=== PATIENT | female | born 1980 | race Caucasian/White ===

== ENCOUNTER 2018-06-25 13:22 | Emergency (ER) | payer OTHER, SELFPAY ==
[2018-06-25 13:23] VITALS: BP 121/75; BP 160/83; PULSE 72; PULSE 76; RESP 17; TEMP 36.5; O2SAT 100; O2SAT 99; BMI 23.3
--- NOTE | 2018-06-25 13:27 | HMH.EDGENADL ---
ED Disposition Clinical Impression: Atypical chest pain Disposition: Hospice - Medical Facility Condition on Discharge: Good Instructions: DI for Atypical Chest Pain Additional Instructions: Additional instructions for CHEST PAIN: See your physician as soon as possible for further evaluation. Return immediately if worsening chest pain, vomiting, shortness of breath, fever, coughing of blood. Referrals: Provider,Referral, [Referring] - - Critical Care Critical Care Time: No Attestation: On , the high probability of a clinically significant, sudden or life threatening deterioration of the following system(s) required my full and direct attention, intervention and personal management. The time I documented below is in addition to time spent performing reported procedures but includes the following listed in this critical care notation. Medical Decision Making - Norman Inquiry Pt receiving controlled substance: No Vital Signs: 06/25/18 13:23 06/25/18 13:53 Temperature 97.7 F Temperature Source Oral Pulse Rate [Right Brachial] 72 70 Respiratory Rate 17 Blood Pressure [Right Arm] 121/75 121/73 Blood Pressure Mean [Right Arm] 90 89 Blood Pressure Source [Right Arm] Automatic Cuff Blood Pressure Position [Right Arm] Sitting 02 Sat by Pulse Oximetry 99 99 Oxygen Delivery Method Room Air - Lab Data Lab Results 06/25/18 13:30: WBC 4.7 L, RBC 4.31, Hgb 13.8, Hct 40.3, MCV 93.4, MCH 32.1 H, MCHC 34.4, RDW 11.9, Plt Count 204, MPV 8.0, Neut % (Auto) 47.6, Lymph % (Auto) 44.8, [place] % (Auto) 5.4, Eos % (Auto) 1.6, Baso % (Auto) 0.5, Neut # (Auto) 2.2, Lymph # (Auto) 2.1, [place] # (Auto) 0.3, Eos # (Auto) 0.1, Baso # (Auto) 0.0 06/25/18 13:30: Sodium 137, Potassium 3.6, Chloride 102, Carbon Dioxide 26, Anion Gap 12.6, BUN 13, Creatinine 0.63, Estimated Creat Clear 124, Estimated GFR 105, Est GFR ( Amer) 127, Glucose 87, Calcium 8.9, Troponin I < 0.02 06/25/18 13:30: D-Dimer < 100 Result diagrams: 06/25/18 13:30 06/25/18 13:30 Orders (Tests/Meds): ORDERS Category Date Time Status XR chest 2V Stat Exams 06/25/18 13:29 Taken - Radiology Data #1 Image(s): Chest Preliminary Findings: Normal/NAD - ECG Data Tracing #1 EKG interpreted by Fernando Vera MD: Rhythm: sinus Rate: 77 [place]: normal Ectopy: none Conduction: normal ST Segment Changes: none T Wave Changes: none Q Waves: none No evidence of acute ischemia or injury Medical Decision Narrative: 2:22 PM: Discussed results with patient. I recommended staying for a second troponin level 3 hours after the first. She declines. She would like to be discharged. She says she thinks she is fine. General Adult HPI - General Chief complaint: Chest Pain Stated complaint: chest pain Time Seen by Provider: 06/25/18 13:30 - History of Present Illness HPI narrative: Complains of chest discomfort. States that she was seen here in the urgent treatment center on 06/18/2018 for right arm problems. She says a blood vessel burst in her right middle finger and the veins on top of her right hand more dark and protruding. She was started on ibuprofen. She followed up with her primary care doctor. She says that she was having no chest pain associated with that. Her right arm has gotten better. Today at work she developed chest discomfort. Initially a sharp stabbing pain in her sternal area associated with nausea and numbness of both hands. Also developed a burning sensation in her anterior chest on the way here. No shortness of breath. No leg pain or swelling. No recent travel, surgery, or hospitalizations. She has no known heart disease and is not on any other medications. She is a smoker. - Related Data Home Medications Medication Instructions Recorded Confirmed No Known Home Medications 06/25/18 06/25/18 Allergies Allergy/AdvReac Type Severity Reaction Status Date / Time Penicillins Allergy Verif
--- NOTE | 2018-06-25 13:29 | XR_ITS ---
XR chest 2V HISTORY: ITS.REASON: chest pain, right arm radiation ORDERING PHYSICIAN: Fernando Vera MD PATIENT AGE: 37 years COMPARISON: None FINDINGS: The cardiomediastinal silhouette and pulmonary vascularity are within normal limits. The lungs are clear without infiltrates, suspicious nodules, or pleural effusions. No acute bony abnormalities. IMPRESSION: Negative chest, no acute finding
[2018-06-25 13:42] LABS: Basophils % 0.5 % (0.1-2.0); Eosinophils # 0.1 K/mm3 (0.0-0.4); Eosinophils % 1.6 % (0.1-12.0); Hematocrit 40.3 % (37.0-47.0); Hemoglobin 13.8 g/dL (12.2-16.2); Lymphocytes # 2.1 K/mm3 (0.7-4.5); Lymphocytes % 44.8 % (10-50); Mean Corpuscular HGB Conc 34.4 g/dL (31.8-35.4); Mean Corpuscular Hemoglobin 32.1 pg (27.0-31.2); Mean Corpuscular Volume 93.4 fl (81-99); Monocytes # 0.3 K/mm3 (0.1-1.0); Monocytes % 5.4 % (1.7-9.3); Neutrophils # 2.2 K/mm3 (1.8-7.8); Neutrophils % 47.6 % (37.0-80.0); Platelet Count 204 K/mm3 (142-424); Red Blood Count 4.31 M/mm3 (4.20-5.40); Red Cell Distribution Width 11.9 % (11.5-17.5); White Blood Count 4.7 K/mm3 (4.8-10.8)
[2018-06-25 13:53] VITALS: BP 121/73; PULSE 70; O2SAT 99
[2018-06-25 13:58] LABS: Anion Gap 12.6 mEq/L (5-15); Blood Urea Nitrogen 13 mg/dL (7-18); Calcium 8.9 mg/dL (8.5-10.1); Carbon Dioxide 26 mmol/L (21.0-32.0); Chloride 102 mmol/L (98-107); Creatinine Clearance Estimated 124 mL/min (50-200); Creatinine,Serum 0.63 mg/dL (0.55-1.02); Estimated Glomerular Filt Rate 105 ml/min (>60); GFR (African American) 127 ML/MIN (>60); Glucose 87 mg/dL (74-106); Sodium 137 mmol/L (136-145); Troponin I < 0.02 ng/ml (0.00-0.06)
[2018-06-25 13:59] LABS: Potassium 3.6 mmoL/L (3.5-5.1)
--- NOTE | 2018-06-25 14:00 | PC.NURSE ---
pt gone to xray
--- NOTE | 2018-06-25 14:03 | PC.NURSE ---
pt returned from xray
[2018-06-25 14:10] LABS: D-Dimer < 100 ng/mL (0-400)
[2018-06-25 14:28] VITALS: BP 121/68; PULSE 76; RESP 20; TEMP 36.8; O2SAT 100
--- NOTE | 2018-06-25 14:28 | PC.NURSE ---
Pt states that she does not want to wait for the second lab test.
== END 2018-06-25 14:31 | disposition hospice, inpatient (51) ==
PROVIDERS: Emergency Provider Emergency Medicine; PCP Pediatrics
DX: R07.89 Other chest pain (principal); F17.210 Nicotine dependence, cigarettes, uncomplicated
CPT/HCPCS: 71046; 80048; 84484; 85025; 85378; 93005; 99283

== ENCOUNTER → 2019-10-13 13:45 | Outpatient (CLI) | payer OTHER, SELFPAY ==
[2019-10-13 14:01] LABS: POC Glucose,Bedside 117 (70-110)
[2019-10-14 13:55] LABS: Covid-19 Nasal PCR Sendout Lex Not Detected
== END ==
PROVIDERS: PCP Pediatrics; Visit Provider Nurse Practitioner Family
DX: Z03.818 Encounter for observation for suspected exposure to other biological agents ruled out (principal); R73.9 Hyperglycemia, unspecified
CPT/HCPCS: 82962; U0004

== ENCOUNTER 2020-01-06 14:24 | Emergency (ER) | payer OTHER, SELFPAY ==
[2020-01-06 14:49] VITALS: BP 105/69; PULSE 69; RESP 18; TEMP 36.6; O2SAT 98; BMI 23.3
--- NOTE | 2020-01-06 15:15 | HMH.EDUTC ---
[facility] [place] Clinical Impression: Exposure to COVID-19 virus, Viral syndrome Disposition: Home, Self-Care Condition on Discharge: Good Instructions: DI for Viral Syndrome, Preventing the Spread of Coronavirus Discharge Instructions Additional Instructions: Drink plenty of fluids. Take tylenolfor pain or fever. Follow up with your regular doctor. GO TO THE ER FOR ANY WORSENING SYMPTOMS Referrals: Juan A Oliveira [Primary Care Provider] - Time of Disposition: 15:19 Medical Decision Making - Medical Records Medical records reviewed: No: I reviewed the patient's medical records. - Norman Inquiry Pt receiving controlled substance: No Vital Signs: 01/06/20 14:49 01/06/20 15:20 Temperature 97.9 F 97.9 F Temperature Source Oral Oral Pulse Rate 69 Pulse Rate [Radial] 69 Respiratory Rate 18 18 Blood Pressure 105/69 L Blood Pressure [Right Arm] 105/69 L Blood Pressure Mean [Right Arm] 81 Blood Pressure Source Automatic Cuff Blood Pressure Source [Right Arm] Automatic Cuff Blood Pressure Position Sitting Blood Pressure Position [Right Arm] Sitting 02 Sat by Pulse Oximetry 98 Oxygen Delivery Method Room Air Room Air Orders (Tests/Meds): ORDERS Category Date Time Status Covid-19 Nasal PCR ([facility]) Routine Lab 01/06/20 14:45 Received [facility] [place] - General Stated complaint: headache Time Seen by Provider: 01/06/20 15:15 Mode of Arrival: Ambulatory Source of Information: Patient Limitations: No Limitations Description of Symptoms (Recalled from Triage Doc. 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 She has been having a headache for the past 2 days. She denies any other symptoms. - Related Data Home Medications Medication Instructions Recorded Confirmed No Known Home Medications 06/25/18 06/25/18 Allergies Allergy/AdvReac Type Severity Reaction Status Date / Time Penicillins Allergy Verified 06/18/18 09:48 - Worker's Comp Is this a Worker's Comp case?: No [facility] History - Hepatitis A Screen Drug use history?: No High risk sexual behaviors?: No History of sexually transmitted infection?: No Currently employed?: No Childcare worker?: No Do you have indoor plumbing?: Yes Do you have electricity?: Yes Attestation statement:: This patient has been screened for Hepatitis A risk factors. I have reviewed the patient's past medical history: Yes Medical History: Denies:: Diabetes Mellitus Type 1, Diabetes Mellitus Type 2, MRSA Amputation: No Fractures: No - Social History Smoking Status: Current every day smoker Tobacco Type: cigarettes # Packs/Day (cigarettes): 1 Alcohol Intake: never Alcohol Intake Frequency:: holidays/special occasions only Occupational Status: employed ROS Obtained: Yes All systems reviewed & no additional complaints - Constitutional Constitutional: Reports system reviewed and no additional complaints, except as docu - Eyes Eyes: Reports system reviewed and no additional complaints, except as docu - ENT Ears, Nose, Mouth, and Throat: Reports system reviewed and no additional complaints, except as docu - Cardiovascular Cardiovascular: Reports system reviewed and no additional complaints, except as docu - Respiratory Respiratory: Yes system reviewed and no additional complaints, except as docu Physical Exam - General General appearance: alert, in no apparent distress - Head Head exam: atraumatic, normocephalic, normal inspection - Eye Eye exam: Present: normal appearance, PERRL, EOMI - ENT ENT exam: Present: normal exam, normal oropharynx, mucous membranes moist, TM's normal bilateral
[2020-01-06 15:20] VITALS: BP 105/69; PULSE 69; RESP 18; TEMP 36.6; O2SAT 98
== END 2020-01-06 15:33 | disposition home or self-care (01) ==
PROVIDERS: Emergency Provider Nurse Practitioner Family; PCP Pediatrics
DX: Z20.828 Contact with and (suspected) exposure to other viral communicable diseases (principal); B34.9 Viral infection, unspecified
CPT/HCPCS: 99201; U0003

== ENCOUNTER 2020-02-29 14:35 | Emergency (ER) | payer OTHER, SELFPAY ==
[2020-02-29 14:35] VITALS: BP 116/54; PULSE 85; RESP 14; TEMP 36.6; O2SAT 99; BMI 24.2
--- NOTE | 2020-02-29 14:50 | HMH.EDUTC ---
[facility] [place] Disposition Clinical Impression: Viral syndrome Disposition: Home, Self-Care Condition on Discharge: Good Instructions: DI for COVID-19 (Suspected or Confirmed ), Preventing the Spread of Coronavirus Discharge Instructions Additional Instructions: Drink plenty of fluids. Take tylenol for pain or fever. Return if you begin to have difficulty breathing. Follow up with your regular doctor. GO TO THE ER FOR ANY WORSENING SYMPTOMS Prescriptions: Ondansetron [Zofran 4mg ODT] 4 mg PO Q8HP PRN #12 tab.rapdis PRN Reason: Nausea Transmission Status: Received by [facility]/pharmacy #[id number] Referrals: Juan A Oliveira [Primary Care Provider] - Forms: Work/School Release Time of Disposition: 15:09 Medical Decision Making - Medical Records Medical records reviewed: No: I reviewed the patient's medical records. - Norman Inquiry Pt receiving controlled substance: No Vital Signs: 02/29/20 14:35 02/29/20 15:09 Temperature 97.9 F 97.9 F Temperature Source Oral Oral Pulse Rate 85 Pulse Rate [Right] 85 Respiratory Rate 14 14 Blood Pressure 116/54 L Blood Pressure [Right Arm] 116/54 L Blood Pressure Mean [Right Arm] 74 02 Sat by Pulse Oximetry 99 Oxygen Delivery Method Room Air Room Air [facility] [place] HPI - General Stated complaint: Covid test Time Seen by Provider: 02/29/20 14:50 - History of Present Illness Provider Complaint: She states that for the past 2 days she has felt bad, had a rash on her upper back, and has nausea. She has also had a headache the was different than her normal migraine headaches. She denies that her headache is severe, but she states that it has been ongoing and very aggravating. - Related Data Previous Rx's Medication Instructions Recorded Ondansetron [Zofran 4mg ODT] 4 mg PO Q8HP PRN #12 tab.rapdis 02/29/20 Allergies Allergy/AdvReac Type Severity Reaction Status Date / Time Penicillins Allergy Verified 06/18/18 09:48 [facility] History - Hepatitis A Screen Attestation statement:: This patient has been screened for Hepatitis A risk factors. I have reviewed the patient's past medical history: Yes Medical History: Denies:: Diabetes Mellitus Type 1, Diabetes Mellitus Type 2, MRSA Amputation: No Fractures: No - Social History Smoking Status: Current every day smoker Tobacco Type: cigarettes # Packs/Day (cigarettes): 1 Alcohol Intake: never Alcohol Intake Frequency:: holidays/special occasions only Occupational Status: employed ROS Obtained: Yes All systems reviewed & no additional complaints - Constitutional Constitutional: Reports system reviewed and no additional complaints, except as docu - Eyes Eyes: Reports system reviewed and no additional complaints, except as docu - ENT Ears, Nose, Mouth, and Throat: Reports system reviewed and no additional complaints, except as docu - Cardiovascular Cardiovascular: Reports system reviewed and no additional complaints, except as docu - Respiratory Respiratory: Reports system reviewed and no additional complaints, except as docu - Gastrointestinal Gastrointestingal: Reports: system reviewed and no additional complaints, except as docu Physical Exam - General General appearance: alert, in no apparent distress - Head Head exam: atraumatic, normocephalic, normal inspection - Eye Eye exam: Present: normal appearance, PERRL, EOMI - ENT ENT exam: Present: normal exam, normal oropharynx, mucous membranes moist, TM's normal bilaterally, normal external ear exam - Neck Neck exam: Present: normal inspection, full ROM, trachea midline. Absent: meningismus, lymphadenopathy - Chest Chest inspection: Present: normal inspection, symmetric chest wall rise. Absent: tenderness - Respiratory Respiratory exam: Present: normal lung sounds bilaterally. Absent: respiratory distress - Cardiovascular Cardiovascular exam: Present: regular rate, normal rhythm. Absent: JVD - Abdominal Exam Abdo
[2020-02-29 15:09] VITALS: BP 116/54; PULSE 85; RESP 14; TEMP 36.6; O2SAT 99
== END 2020-02-29 15:13 | disposition home or self-care (01) ==
PROVIDERS: Emergency Provider Nurse Practitioner Family; PCP Pediatrics
DX: Z20.822 Contact with and (suspected) exposure to COVID-19 (principal); B34.9 Viral infection, unspecified; F17.210 Nicotine dependence, cigarettes, uncomplicated
CPT/HCPCS: 99202; G0463; U0003